=== PATIENT | female | born 1990 | race Caucasian/White ===

== ENCOUNTER 2017-04-02 23:41 | Emergency (ER) | END 2017-04-03 04:23 | disposition home or self-care (01) ==

== ENCOUNTER 2017-12-19 09:16 | Outpatient (CLI) | END 2017-12-19 09:50 | disposition home or self-care (01) ==

== ENCOUNTER 2017-12-19 09:54 | Emergency (ER) | END 2017-12-19 12:05 | disposition home or self-care (01) ==

== ENCOUNTER 2018-03-16 09:54 | Inpatient (IN) | payer MEDICAID ==
--- NOTE | 2017-12-19 10:57 | PN ---
Triage Information Date/Time 12/19/17 Reason for visit: SOB and Palpitation Weeks of Gestation 24w5d /Para Hypertention: none Additional information denies any abdominal pain or uc's no chest pain Objective BP 116/72 HR 112 R 18 T 98.6 O2 sat 99% Heart Rate: 150's Heart Rate Comments appropriate for GA Contractions: None Disposition: to ER for evaluation Assessment/Plan A IUP 24w5d SOB P ER for further evaluation for medical condition JACK CHI MD Dec 19, 2017 10:57
[~2018-03-16] VITALS: Ht 157.5 cm; Wt 74.6 kg
[~2018-03-16 09:54] MED LIST: ACET325T33 PO; PREN1TAB79 PO; morphine SULFATE/PF (10 MG/10 ML) INJ ONE
[2018-03-16 10:13] VITALS: BP 119/73; PULSE 120; RESP 18; Ht 157.5 cm; Wt 74.6 kg
--- NOTE | 2018-03-16 11:28 | TRIAGE ---
OB Triage Datetime Report Generated by CPN: 03/16/2018 11:28 Datetime: 03/16/2018 11:00 Stage of : OB Triage Maternal Assessment Level of Consciousness: Fully Conscious Labor Evaluation Frequency: NONE Monitor Mode: External Resting Tone [place]: Relaxed Heart Rate FHR Baseline Rate: 150 Monitor Mode: External US Variability: Moderate 6-25 bpm Accelerations: 15X15 Decelerations: None Category: Category I Pain Assessment Pain Scale: 0 Pain Goal: 3 Datetime: 03/16/2018 10:30 Vaginal Exam Dilatation (cms): 1.0 Effacement (%): 50 Station: -2 Exam By: sophia Vaginal Bleeding: None Pool: Negative Nitrazine: Negative Cervix, Consistency: Soft Cervix, Position: Midposition Datetime: 03/16/2018 10:08 Assessment Type: Triage Time of Arrival: 03/16/2018 09:52 EGA: 37.1 Arrived By: Ambulatory Arrived From: Home Chief Complaint: PT. HERE C/O UC'S SINCE 03/15 Movement: Present Contractions: Irregular Rupture of Membranes: Denies Vaginal Bleeding: None Vaginal Discharge: Denies Recent Sexual Intercouse: Denies Abdominal Trauma: Not Applicable Patient Complaints: Contractions; Cramping; Back Pain Provider Notified: TONY Initial Plan: EFM Maternal Assessment Level of Consciousness: Fully Conscious DTR's/Clonus: DTRs 2+ Headache: Denies Blurred Vision: No Respiratory Effort: Unlabored; Regular Rhythm; Equal Expansion Breath Sounds, Left: Clear and Equal Breath Sounds, Right: Clear and Equal Nausea/Vomiting: Denies RUQ Epigastric Pain: Denies Lower Extremities Edema: None Degree: None Upper Extremities Edema: None Degree: None Facial Edema: None Fall Risk Assessment History of Falling: (0) No Secondary Diagnosis: (0) No Ambulatory Aid: (0) Bedrest/Nurse Assist IV Therapy: (0) No Gait: (0) Normal/Bedrest/Immobile Mental Status: (0) Oriented to Own Ability Fall Score: 0 Fall Risk Score Definition: No Risk: No action required Datetime: 03/16/2018 10:05 Monitor Mode: External Monitor Mode: External US Datetime: 12/19/2017 09:27 EGA: 24.5 Datetime: 12/19/2017 09:25 Fall Score: 0 Fall Risk Score Definition: No Risk: No action required
--- NOTE | 2018-03-16 11:43 | HP ---
Date/Time of Note Date/Time of Note DATE: 03/16/18 TIME: 11:42 OB - History Hx of Present Free Text/Dictation at 37 weeks with ctxs and previous c/s Care: Good Care Ultrasounds: Normal mid trimester US Obstetrical Complications: None Medical Complications: None Past Family/Social History * Past Medical, Surgical, Family and Obstetric Histories reviewed from chart. OB Admission Exam Vital Signs Vital Signs Vital Signs Date Temp Pulse Resp B/P (MAP) Pulse Ox O2 O2 Flow FiO2 Time Delivery Rate 03/16/18 98.7 120 18 119/73 97 Room Air 10:13 (88) Physical Exam HEENT: WNL Heart: Rhythm Normal Lungs: Clear, Equal Abdomen: WNL Extremities: Normal Reflexes: Normal Cervical Dilatation: 2cm Effacement: 50% Station: -3 Membranes: Ruptured Amniotic Fluid: Clear Heart Rate: 130's Accelerations: Accelerations Present Decelerations: No Decelerations Varibility: Moderate Contractions on Admission: 6-10 Minutes Apart Intensity: Moderate OB Assessment/Plan Reason for admission: active labor, rupture of membranes Plan: Section DAMION JIMENEZ MD Mar 16, 2018 11:43
[2018-03-16] MEDS ORDERED: ONDANSETRON 4 MG INJ IV STA (11:52)
[2018-03-16] MEDS ORDERED: LACTATED RINGER'S 1,000 ML IV ONE (12:00)
[2018-03-16] MEDS ORDERED: CARBOPROST 250 MCG INJ IM PRN ×2 (12:00→16:30)
[2018-03-16] MEDS ORDERED: METOCLOPRAMIDE 10 MG INJ IM ONE (12:00)
[2018-03-16] MEDS ORDERED: OXYTOCIN 30 UNITS/LR 500 ML IV PRN ×2 (12:00→16:30)
[2018-03-16] MEDS ORDERED: CITRIC ACID/NA CITRATE 30 ML CUP PO ONE (12:00)
[2018-03-16] MEDS ORDERED: CEFAZOLIN 2 GM/50 ML (PMX) 50 ML IVPB SCH (12:00)
[2018-03-16] MEDS ORDERED: MISOPROSTOL 200 MCG TAB PR PRN ×2 (12:00→16:30)
[2018-03-16] MEDS ORDERED: METHYLERGONOVINE 0.2 MG INJ IM PRN ×2 (12:00→16:30)
[2018-03-16] MEDS ORDERED: FAMOTIDINE 20 MG INJ IV ONE (12:30)
--- NOTE | 2018-03-16 12:36 | PREAC ---
Date/Time of Note Date/Time of Note DATE: 03/16/18 TIME: 12:35 Anesthesia Eval and Record Evaluation Time Pre-Procedure Interview DATE: 03/16/18 TIME: 12:35 Age 27 Sex female NPO: 4 hrs Preoperative diagnosis previous c section Planned procedure emergency repeat c section Past Medical History Past Medical History: None Surgery & Anesthesia Issues No known issue Meds Anticoagulation: No Beta Glenn within 24 hr: No Reason Beta Glenn not given: Pt. not on B-Glenn Reported Medications Vit W-Ca,Fe,FA(<1 mg) ( Vitamins) 1 Each Tablet, 1 EACH PO 12/19/17 Discontinued Scripts Acetaminophen* (Tylenol*) 325 Mg Tablet, 650 MG PO Q6H PRN for PAIN AND OR ELEVATED TEMP, #15 TAB Prov:CARLOS MICHAELS 12/19/17 Current Medications Cefazolin Sodium/ Dextrose 50 ml @ 100 mls/hr ONCE IVPB ; Start 03/16/18 at 12:00 Oxytocin/Lactated Ringer's 500 ml @ 125 mls/hr POST IV ; Start 03/16/18 at 12:00 Oxytocin/Lactated Ringer's 500 ml @ 0 mls/hr ONCE PRN IV VAGINAL BLEEDING; Start 03/16/18 at 12:00 Methylergonovine Maleate (Methergine) 0.2 mg ONCE PRN IM VAGINAL BLEEDING; Start 03/16/18 at 12:00 Carboprost Tromethamine (Hemabate) 250 mcg ONCE PRN IM VAGINAL BLEEDING; Start 03/16/18 at 12:00 Misoprostol (Cytotec) 1,000 mcg ONCE PRN MI VAGINAL BLEEDING; Start 03/16/18 at 12:00 Lactated Ringer's 1,000 ml @ 1,000 mls/hr Q1H ONCE IV Last administered on 03/16/18at 12:12; Admin Dose 1,000 MLS/HR; Start 03/16/18 at 12:00; Stop 03/16/18 at 12:59 Meds reviewed: Yes Allergies Coded Allergies: No Known Allergy (Unverified , 12/19/17) Allergies Reviewed: Yes Labs/Studies Labs Reviewed: Reviewed by anesthesiologist Result Diagram: 03/16/18 1145 Laboratory Tests 03/16/18 11:45 Blood Bank Test 03/16/18 11:45 Blood Type O POSITIVE Rh Immune Globulin Candidate NO test: N/A Pre-procedure Exam Last vitals Vital Signs Date Temp Pulse Resp B/P (MAP) Pulse Ox O2 O2 Flow FiO2 Time Delivery Rate 03/16/18 98.7 120 18 119/73 97 Room Air 10:13 (88) Airway: Adequate mouth opening, Adequate thyromental dist Mallampati: Mallampati II Teeth: Normal Lung: Normal Heart: Normal ASA Physical Status ASA physical status: 2 Emergency: None Pre-operative Attestations Prior to commencing anesthesia and surgery, the patient was re-evaluated, there was verification of: *The patient's identity *The results of appropriate recent lab work and preoperative vital signs *The above evaluation not changing prior to induction *Anesthetic plan, risk benefits, alternative and complications discussed with patient/family; questions answered; patient/family understands, accepts and wishes to proceed. JOHNY DASILVA DO Mar 16, 2018 12:36
[2018-03-16] MEDS ORDERED: FENTAnyl 50 MCG/ML VIAL ONE (12:57)
[2018-03-16] MEDS ORDERED: DEXAMETHASONE 4 MG/ML 1 ML INJ ONE (12:57)
[2018-03-16] MEDS ORDERED: ONDANSETRON 4 MG INJ ONE (12:57)
--- NOTE | 2018-03-16 13:36 | OPR ---
Operative Report Planned Procedure Procedure date Mar 16, 2018 Procedure(s) repeat c/s Performed by see signature line Manager [place]: ABBI FRANCO M.D. Pre-procedure diagnosis repeat c/s in labor [id number] Anesthesia Type: [id number] spinal Post-Procedure Post-procedure diagnosis same Findings Live Baby [], Apgars [] and [], weight [], position [], [] presentation []cord. Estimated Blood Loss: 600 - 700 mls Specimen(s) none Grafts/Implant(s) none Complication(s) none Pt Condition post procedure: stable Disposition: PACU Procedure Description Under satisfactory []spinal anesthesia, the patient was prepped and draped and placed in a supine position, tilted to the left. Pfannenstiel incision was made, carried through the subcutaneous tissue. Bleeders brought under control with electrocautery. Fascia incised to the length of the incision. Rectus muscles from the fascia, divided midline. Peritoneum exposed, entered through a transverse incision. Exploration of abdomen revealed gravid uterus. Bladder flap was developed. Transverse incision was made in the lower segment of the uterus. Amniotic sac ruptured. [] amniotic fluid noted. [] Nasal oropharyngeal suction was performed. The baby was handed to the team for immediate attention. The placenta was delivered manually intact. Uterine cavity was cleaned with wet sponge and drainage established. Uterus closed in 2 layers using [one monocrfyl] in continuous fashion. Peritoneal cavity irrigated with warm saline. Sponge, needle and instrument count reported to be correct. Abdominal peritoneum closed with [] continuously. Rectus muscle approximated with []. Fascia closed with [], and skin closed with nila. Estimated blood loss 700[]mL. Urine bag contained []mL of urine DAMION JIMENEZ MD Mar 16, 2018 13:36
[2018-03-16] MEDS ORDERED: OXYTOCIN 30 UNITS/LR 500 ML IV ONE (13:46)
[2018-03-16] MEDS: OXYTOCIN 30 UNITS/LR 500 ML IV SCH ×2 (13:55→16:06)
--- NOTE | 2018-03-16 15:14 | PAC ---
Date/Time of Note Date/Time of Note DATE: 03/16/18 TIME: 15:13 Post-Anesthesia Notes Post-Anesthesia Note Last documented vital signs Vital Signs Date Temp Pulse Resp B/P (MAP) Pulse Ox O2 O2 Flow FiO2 Time Delivery Rate 03/16/18 98.0 85 18 1195/55 97 Room Air 1430 Activity: WNL Respiratory function: WNL Cardiovascular function: WNL Mental status: Baseline Pain reasonably controlled: Yes Hydration appropriate: Yes Nausea/Vomiting absent: Yes JOHNY DASILVA DO Mar 16, 2018 15:14
[2018-03-16] MEDS ORDERED: NALOXONE (0.4 MG/ML) INJ IV PRN (15:30)
[2018-03-16] MEDS ORDERED: HYDROmorphONE 0.5 MG/0.5 ML SYG IV PRN ×2 (15:30)
[2018-03-16] MEDS ORDERED: ONDANSETRON 4 MG INJ IV PRN (15:30)
[2018-03-16] MEDS ORDERED: DIPHENHYDRAMINE 50 MG INJ IV PRN (15:30)
[2018-03-16] MEDS ORDERED: ZOLPIDEM 5 MG TAB PO PRN (15:30)
[2018-03-16] MEDS: KETOROLAC 30 MG INJ IV PRN ×2 (15:59→22:07)
[2018-03-16] MEDS ORDERED: LACTATED RINGER'S 1,000 ML IV SCH (16:14)
[2018-03-16] MEDS ORDERED: OXYTOCIN 30 UNITS/LR 500 ML IV SCH (16:14)
[2018-03-16] MEDS ORDERED: NACL 0.9% 3 ML SYG IV SCH (16:30)
[2018-03-16] MEDS ORDERED: NA PHOSPHATE/BIPHOS 133 ML ENEMA PR PRN (16:30)
[2018-03-16] MEDS ORDERED: HYDROCODONE/APAP (5/325) TAB PO PRN (16:30)
[2018-03-16 17:30] VITALS: BP 109/70; PULSE 80; RESP 17
[2018-03-16] MEDS: LANOLIN HPA 1 PKT TOP PRN (22:05)
[2018-03-17] VITALS: BP 98/49; RESP 18
[2018-03-17] MEDS: LACTATED RINGER'S 1,000 ML IV SCH ×2 (01:33→09:12)
[2018-03-17 04:00] VITALS: BP 101/57; PULSE 79; RESP 19
[2018-03-17 07:45] VITALS: BP 89/55; PULSE 94; RESP 16
[2018-03-17] MEDS ORDERED: INFLUENZA VIRUS VACCINE 0.5 ML (DISPENSING) IM* ONE (09:00)
[2018-03-17] MEDS: KETOROLAC 30 MG INJ IV PRN (11:59)
[2018-03-17] MEDS: IBUPROFEN 800 MG TAB PO SCH ×2 (14:54→21:43)
[2018-03-17 15:58] VITALS: BP 107/67; PULSE 100; RESP 17
--- NOTE | 2018-03-17 16:21 | PN ---
Date/Time of Note Date/Time of Note DATE: 03/17/18 TIME: 16:19 OB Subjective Subjective Subjective POD#1 Patient is doing well. She denies nausea, vomiting, shortness of breath, chest pain, headache. She has been ambulating without difficulty, tolerating regular diet. Pain is well controlled on current medications OB Objective Objective Objective VS - Last 72 Hours, by Label Date Temp Pulse Resp B/P (MAP) Pulse Ox O2 O2 Flow FiO2 Time Delivery Rate 03/17/18 98.1 100 17 107/67 Room Air 15:58 (80) 03/17/18 97.9 94 16 89/55 (66) 98 Room Air 07:45 03/17/18 97.5 79 19 101/57 99 Room Air 04:00 (72) 03/17/18 98.3 18 98/49 (65) Room Air 00:00 03/16/18 97.8 80 17 109/70 Room Air 17:30 (83) 03/16/18 98.7 120 18 119/73 97 Room Air 10:13 (88) General: AAO X 3, comfortable, NAD, appropriate mood and affect. ABD: +BS. Soft, non-tender. Uterus 2 cm below umbilicus Incision: Clear, dry, intact. No erythema, drainage or induration. Flank: No CVA tenderness (B/L) LE: Mild edema. No clubbing, cyanosis, thigh or calf tenderness (B/L). Homans 'sign is negative OB Assessment/Plan Other plan: 27-year-old s/p delivery at 37 weeks. POD#1 - AF, VSS - Baby is doing well, at bed side. She is bonding well - Continue care KENYON VEGA Mar 17, 2018 16:21
[2018-03-17 20:00] VITALS: BP 101/56; PULSE 65; RESP 19
[2018-03-18 04:00] VITALS: BP 95/63; PULSE 94; RESP 20
[2018-03-18] MEDS: IBUPROFEN 800 MG TAB PO SCH ×3 (05:50→22:23)
[2018-03-18 08:30] VITALS: BP 94/55; PULSE 92; RESP 16
--- NOTE | 2018-03-18 13:12 | DS ---
Date/Time of Note Date/Time of Note DATE: 03/18/18 TIME: 13:11 Discharge Summary Admission/Discharge Info Admit Date/Time Mar 16, 2018 at 11:25 Discharge Date/Time Discharge Diagnosis term Patient Condition: Stable Hospital Course unremarkable Home Meds Reported Medications Vit W-Ca,Fe,FA(<1 mg) ( Vitamins) 1 Each Tablet, 1 EACH PO 12/19/17 Discontinued Scripts Acetaminophen* (Tylenol*) 325 Mg Tablet, 650 MG PO Q6H PRN for PAIN AND OR ELEVATED TEMP, #15 TAB Prov:CARLOS MICHAELS 12/19/17 Primary Care Provider Care Physician No Primary DAMION JIMENEZ MD Mar 18, 2018 13:12
[2018-03-18 16:00] VITALS: BP 104/73; PULSE 96; RESP 18
[2018-03-18 20:30] VITALS: BP 104/66; PULSE 103; RESP 16
[2018-03-18] MEDS: LANOLIN HPA 1 PKT TOP PRN (21:07)
[2018-03-19 04:50] VITALS: BP 116/73; PULSE 104; RESP 16
[2018-03-19] MEDS: IBUPROFEN 800 MG TAB PO SCH ×2 (06:05→14:23)
[2018-03-19 08:00] VITALS: BP 98/58; PULSE 90; RESP 19
[2018-03-19] MEDS ORDERED: DIPHTH/TET/ACEL PERTUSS (ADULT) 0.5 ML VIAL IM* ONE (09:00)
[2018-03-19] MEDS ORDERED: MEASLES,MUMPS,RUBELLA VACCINE INJ SC* ONE (09:00)
== END 2018-03-19 14:45 | disposition home or self-care (01) | DRG 788 ==
LOC: OBT 09:54 → L-D 09:55 → OBT 11:25 → L-D 12:48 → PP1 17:07
PROVIDERS: ADMIT Obstetrics & Gynecology; ATTEND Obstetrics & Gynecology
PROC: 10D00Z1 Extraction of Products of Conception, Low, Open Approach (ICD-10-PCS; principal; 2018-03-16 13:15)
DX: O34.211 Maternal care for low transverse scar from previous cesarean delivery (principal); Z3A.37 37 weeks gestation of pregnancy; Z37.0 Single live birth
CPT/HCPCS: 76818; 81003; 84112; 85025; 85610; 85730; 86592; 86850; 86900; 86901; 90686; 90715; 99464; G0463; J0690; J1100; J1200; J1885; J2274; J2405; J2590; J3010; J7120